=== PATIENT | female | born 1960 | race Caucasian/White ===

== ENCOUNTER 2024-04-15 08:58 | Day surgery (SDC) | payer OTHER ==
[~2024-04-15] VITALS: Ht 167.6 cm; Wt 133.8 kg
[~2024-04-15 08:58] MED LIST: ASPI81CH PO; IRBE150 PO; Lactated Ringer's 1,000 ML IV SCH; METF500 PO; PRAVASTATIN SOD40 MG PO; TRAZ50 PO; TRULICITY0.75 MG/01 SC
[2024-04-15] MEDS ORDERED: ACET500 PO (11:02)
[2024-04-15 11:12] VITALS: BP 142/82
--- NOTE | 2024-04-15 11:28 | NUR ---
History, Chart, Medications and Allergies reviewed before start of procedure. Patient States Post-Procedure ride home has been arranged with ""
[2024-04-15] MEDS ORDERED: propofoL 20 ML IV ONE ×2 (11:40→11:49)
--- NOTE | 2024-04-15 11:45 | NUR ---
04/15/24 1145 Angelito Alberts MONITOR INTACT WITH CONTINUOUS PULSE OXIMETRY, CONTINUOUS END TITAL CO2, AND INTERMITTENT BLOOD PRESSURE.AND EKG
[2024-04-15 12:10] VITALS: BP 121/75
[2024-04-15 12:23] VITALS: BP 118/70
== END 2024-04-15 12:33 | disposition home or self-care (01) ==
LOC: ORSCMMR 08:58 → ORD 10:30 → ORSCMMR 12:33
PROVIDERS: Internal Medicine Gastroenterology
PROC: 0DBK8ZX Excision of Ascending Colon, Via Natural or Artificial Opening Endoscopic, Diagnostic (ICD-10-PCS; principal; 2024-04-15 10:30)
DX: Z12.11 Encounter for screening for malignant neoplasm of colon (principal); D12.2 Benign neoplasm of ascending colon; K57.30 Diverticulosis of large intestine without perforation or abscess without bleeding; I10 Essential (primary) hypertension; E11.9 Type 2 diabetes mellitus without complications; G47.33 Obstructive sleep apnea (adult) (pediatric); E66.01 Morbid (severe) obesity due to excess calories; Z68.42 Body mass index [BMI] 45.0-49.9, adult; Z79.82 Long term (current) use of aspirin; Z79.84 Long term (current) use of oral hypoglycemic drugs; Z79.85 Long-term (current) use of injectable non-insulin antidiabetic drugs; Z79.899 Other long term (current) drug therapy
CPT/HCPCS: 82947; 88305; J2704; J7120